=== PATIENT | female | born 1990 | race African-American/Black ===

== ENCOUNTER 2021-01-16 08:16 | Emergency (ER) | payer MEDICAID ==
[~2021-01-16] VITALS: Ht 170.2 cm; Wt 77.0 kg
[2021-01-16] MEDS ORDERED: SODIUM CHLORIDE 0.9% 1,000 ML IV ONE ×2 (08:30)
[2021-01-16 09:36] LABS: BASOPHILS % 0.7 % (0.0-2.0); EOSINOPHILS % 1.7 % (0.0-5.0); HEMOGLOBIN. 14.3 g/dL (12.0-16.0); LYMPHOCYTES % 27.4 % (20.0-50.0); MEAN CORPUSCULAR HEMOGLOBIN 31.9 pg (28.0-32.0); MEAN CORPUSCULAR VOLUME 94.1 fL (81.0-99.0); MEAN PLATELET VOLUME 7.6 fl (7.4-10.4); MONOCYTES % 3.3 % (2.0-8.0); NEUTROPHILS % 66.9 % (40.0-76.0); PLATELET 391 x1000/uL (130-400); RED BLOOD CELL COUNT 4.47 mill/uL (4.2-5.4)
[2021-01-16] MEDS ORDERED: ONDANSETRON HCL 4MG/2ML INJ IV ONE (09:45)
[2021-01-16 09:50] LABS: CHLORIDE 112 mEq/L (98-107)
[2021-01-16 09:53] LABS: HCG SCREEN NEGATIVE
[2021-01-16 09:54] LABS: ETHANOL BLOOD 143 mg/dL
[2021-01-16 09:59] LABS: T4 FREE 1.48 ng/dL (0.76-1.46)
[2021-01-16] MEDS ORDERED: MAGNESIUM 2 G PREMIX 50 ML IV ONE (10:15)
[2021-01-16] MEDS ORDERED: POTASSIUM CHLORIDE 20MEQ TABLET SR PO ONE (10:15)
[2021-01-16 11:01] LABS: *AMPHETAMINES SCREEN URINE NEGATIVE (NEGATIVE); *BARBITURATES SCREEN URINE NEGATIVE (NEGATIVE); *BENZODIAZEPINES SCREEN URINE NEGATIVE (NEGATIVE); *COCAINE SCREEN URINE NEGATIVE (NEGATIVE)
[2021-01-16 11:02] LABS: METHADONE URINE SCREEN NEGATIVE (NEGATIVE); OPIATES URINE SCREEN NEGATIVE (NEGATIVE); PHENCYCLIDINE URINE SCREEN NEGATIVE (NEGATIVE)
[2021-01-16 11:07] LABS: CANNABINOID URINE SCREEN PRESUMTIVE POSITIVE (NEGATIVE)
[2021-01-16] MEDS ORDERED: FOLIC ACID 1 MG, THIAMINE HCL 100 MG, MVI, ADULT NO.1 10 ML in DEXTROSE 5% WATER 1,000 ML IV ONE (11:15)
[2021-01-16 13:16] VITALS: BP 112/73
== END 2021-01-16 13:21 | disposition left against medical advice (07) ==
LOC: ER 08:16 → EDBEDREQTM 12:41 → EDBEDREQ 12:41 → ENRESERV 13:14 → CANBEDREQ 13:19 → ER 13:21
DX: R00.0 Tachycardia, unspecified (principal); E87.8 Other disorders of electrolyte and fluid balance, not elsewhere classified; Z20.822 Contact with and (suspected) exposure to COVID-19; Z88.2 Allergy status to sulfonamides
CPT/HCPCS: 36415; 71045; 80053; 80305; 80320; 81025; 83880; 84439; 84443; 84484; 84703; 85025; 87426; 93005; 96365; 96367; 96375; 99291; J2405; J3411; J3475; J3490; J7030; J7070; G0480